=== PATIENT | male | born 1985 | race African-American/Black ===

== ENCOUNTER 2017-01-16 10:43 | Emergency (ER) | payer MEDICAID ==
[~2017-01-16] VITALS: Ht 175.3 cm; Wt 72.6 kg
[2017-01-16 11:34] VITALS: BP 126/84
== END 2017-01-16 13:11 | disposition home or self-care (01) ==
LOC: ER 10:43
DX: S50.12XA Contusion of left forearm, initial encounter (principal); S60.221A Contusion of right hand, initial encounter; F17.210 Nicotine dependence, cigarettes, uncomplicated; Z88.0 Allergy status to penicillin; V43.52XA Car driver injured in collision with other type car in traffic accident, initial encounter; Y93.89 Activity, other specified; Y92.89 Other specified places as the place of occurrence of the external cause; Y99.8 Other external cause status
CPT/HCPCS: 73130

== ENCOUNTER 2017-01-27 10:34 | Emergency (ER) | payer MEDICAID ==
[~2017-01-27] VITALS: Ht 180.3 cm; Wt 58.1 kg
[2017-01-27 13:18] VITALS: BP 130/70
== END 2017-01-27 13:19 | disposition home or self-care (01) ==
LOC: ER 10:34
DX: S93.124A Dislocation of metatarsophalangeal joint of right lesser toe(s), initial encounter (principal); F17.210 Nicotine dependence, cigarettes, uncomplicated; Z88.0 Allergy status to penicillin; M41.9 Scoliosis, unspecified; V43.92XA Unspecified car occupant injured in collision with other type car in traffic accident, initial encounter; Y93.89 Activity, other specified; Y92.89 Other specified places as the place of occurrence of the external cause; Y99.8 Other external cause status
CPT/HCPCS: 26770; 73660

== ENCOUNTER 2017-05-16 05:02 | Emergency (ER) | payer MEDICAID ==
[~2017-05-16] VITALS: Ht 180.3 cm; Wt 69.9 kg
[2017-05-16 05:58] VITALS: BP 118/72
== END 2017-05-16 06:22 | disposition home or self-care (01) ==
LOC: ER 05:02
DX: M79.672 Pain in left foot (principal); L08.9 Local infection of the skin and subcutaneous tissue, unspecified; M25.562 Pain in left knee; G89.29 Other chronic pain; M54.9 Dorsalgia, unspecified; F17.210 Nicotine dependence, cigarettes, uncomplicated; Z88.0 Allergy status to penicillin
CPT/HCPCS: 73630